=== PATIENT | male | born 1950 | race Caucasian/White ===

== ENCOUNTER 2021-01-14 12:53 | Emergency (ER) | payer OTHER ==
--- NOTE | 2021-01-14 14:17 | RAD REPORT ---
EXAM DESCRIPTION: RAD - Chest Pa And Lat (2 Views) - 01/14/2021 2:05 pm CLINICAL HISTORY: fall 1 week ago, rib pain Chest pain. COMPARISON: CHEST SINGLE VIEW dated 03/10/2015 FINDINGS: The lungs are clear. The heart is normal in size. No displaced fractures. Sternotomy wires noted. IMPRESSION: No acute or concerning finding suspected.
[2021-01-14] MEDS ORDERED: MORPHINE 2 MG/ML SYR ONE (15:17)
[2021-01-14] MEDS ORDERED: ONDANSETRON 4 MG/2 ML VIAL ONE (15:17)
[2021-01-14] MEDS ORDERED: NA CHLORIDE 0.9% 500 ML ONE (15:17)
[2021-01-14 15:18] LABS: Absolute Lymphocytes (CBC) 1.3 K/uL (0.7-4.9); Basophils % 0.8 % (0-1.3); Hematocrit 45.6 % (39.6-49.0); Lymphocytes % 15.6 % (15.3-44.8); MPV 7.2 fL (7.6-11.3)
[2021-01-14] MEDS ORDERED: NA CHLORIDE 0.9% 0 ML ONE (15:18)
[2021-01-14 15:36] LABS: Bilirubin Total 0.3 mg/dL (0.2-1.0); Potassium 4.2 mmol/L (3.5-5.1); Protein, Total 8.1 g/dL (6.4-8.2)
--- NOTE | 2021-01-14 15:46 | RAD REPORT ---
EXAM DESCRIPTION: CT - Chest Abdomen Pelvis W Cont - 01/14/2021 3:29 pm CLINICAL HISTORY: Chest and abdomen pain. Chest pain;Abdominal distention COMPARISON: No comparisons TECHNIQUE: Approximately 100 mL nonionic IV contrast was administered to the patient. All CT scans are performed using dose optimization technique as appropriate and may include automated exposure control or mA/KV adjustment according to patient size. FINDINGS: The lungs are clear.No pleural or pericardial effusion.No intrathoracic adenopathy.Sternot junior wires present. The liver, spleen, pancreas, adrenal glands and kidneys are within normal limits. No bowel obstruction, free air, free fluid or abscess. Appendectomy. Prominent colonic diverticulosis is noted without diverticulitis. No pathologic lymphadenopathy in the abdomen or pelvis. No fractures are evident. IMPRESSION: No acute abnormality is detected.
[2021-01-14 16:04] LABS: Urine Blood Negative (Negative); Urine Glucose Negative (Negative); Urine Protein Negative (Negative); Urine Specific Gravity 1.025 (1.005-1.030); Urine pH 5.5 (5.0-7.0)
--- NOTE | 2021-01-14 16:21 | ER ---
Nurse's Notes [facility] Name: Brant Cui Age: 70 yrs Sex: Male : 1950 Arrival Date: 01/14/2021 Time: 12:57 Bed 8 Private MD: Diagnosis: Fall on same level, unspecified;Contusion of right back wall of thorax;Contusion of right front wall of thorax;Contusion of abdominal wall Presentation: 01/14 13:13 Chief complaint: Patient states: "I fell about a week ago because a puppy tripped me aa5 and I fell onto the night stand". pt c/o right lower rib cage pain. Denies LOC. Coronavirus screen: At this time, the client does not indicate any symptoms associated with coronavirus-19. Ebola Screen: No symptoms or risks identified at this time. Initial Sepsis Screen: Does the patient meet any 2 criteria? No. Patient's initial sepsis screen is negative. Does the patient have a suspected source of infection? No. Patient's initial sepsis screen is negative. Risk Assessment: Do you want to hurt yourself or someone else? Patient reports no desire to harm self or others. Onset of symptoms was December 2020. 13:13 Method Of Arrival: Ambulatory aa5 13:13 Acuity: AUGUSTINE 3 aa5 Historical: - Allergies: 13:14 Kbbgagb-Elz-Hss Reductase Inhibitors; aa5 - Home Meds: 13:16 Plavix 75 mg Oral tab 1 tab once daily [Active]; Paxil 40 mg Oral tab 1 tab once daily aa5 [Active]; aspirin 81 mg Oral tab daily [Active]; Livalo oral once daily [Active]; Pepcid 20 mg Oral tab 2 times per day [Active]; Zetia 10 mg Oral tab 1 tab once daily [Active]; - PMHx: 13:14 Diabetes (Diet controlled); GERD; TIA; aa5 13:16 Myocardial infarction; aa5 - PSHx: 13:16 carpal tunner repair; Appendectomy; hernia; heart bypass; aa5 - Immunization history:: Adult Immunizations unknown. - Social history:: Smoking status: Patient denies any tobacco usage or history of. - Family history:: not pertinent. Assessment: 15:39 Musculoskeletal: Bruising to right flank. Tender to touch. jt3 Vital Signs: 13:13 BP 158 / 96; Pulse 69; Resp 16 S; Temp 97.0(TE); Pulse Ox 98% on R/A; Weight 83.91 kg aa5 (R); Height 6 ft. 0 in. (182.88 cm); 17:01 BP 180 / 88; Pulse 59; Resp 17; Pulse Ox 100% on R/A; jt3 13:13 Body Mass Index 25.09 (83.91 kg, 182.88 cm) aa5 ED Course: 12:57 Patient arrived in ED. ds1 13:13 Arm band placed on. aa5 13:14 Triage completed. aa5 14:03 Chest Pa And Lat (2 Views) XRAY In Process Unspecified. EDMS 14:30 Isaías Paul MD is Attending Physician. julia 14:48 Leodan Calvo, RN is Primary Nurse. jt3 15:13 CT Chest, Abdomen, Pelvis - W/Contrast In Process Unspecified. EDMS 15:13 Inserted saline lock: 20 gauge in left antecubital area, using aseptic technique. ch5 17:02 IV discontinued. jt3 Administered Medications: 15:12 Drug: NS 0.9% 500 ml Route: IV; Rate: bolus; Site: left antecubital; ch5 15:12 Not Given (Patient Refused): morphine 2 mg IVP once; (PAIN>8) RASS on ADMN: Combtv4, ch5 Very Agttd3, Agttd2, Rstlss1, AlertClm0, Drwsy-1, LtSdtn-2, ModSdtn-3, DpSdtn-4, UnArsble-5 x2 15:12 Not Given (Patient Refused): Zofran (Ondansetron) 4 mg IVP once; over 2 minutes ch5 15:13 Drug: NS 0.9% 1000 ml Route: IV; Rate: 125 ml/hr; Site: left antecubital; ch5 Outcome: 16:21 Discharge ordered by . julia 16:23 Discharged to home ambulatory. jt3 16:23 Condition: good 16:23 Discharge instructions given to patient. 17:12 Patient left the ED. jt3 Signatures: Dispatcher [employer] EDMS Isaías Paul MD MD cha Sanford, Demi ds1 Keira Stephens, ALKA RN aa5 Dickson Gispon RN RN ch5 Leodan Calvo RN RN jt3 Corrections: (The following items were deleted from the chart) 13:18 13:13 Acuity: AUGUSTINE 4 aa5 aa5
--- NOTE | 2021-01-14 16:22 | EDPHYS ---
Physician Documentation [facility] Name: Brant Cui Age: 70 yrs Sex: Male : 1950 Arrival Date: 01/14/2021 Time: 12:57 Bed 8 Private MD: ED Physician Isaías Paul HPI: 01/14 16:14 This 70 yrs old Male presents to ER via Ambulatory with complaints of Side julia Pain. 16:14 The patient presents with abdominal pain blunt injury to the upper abdomen. Onset: The julia symptoms/episode began/occurred 1 week(s) ago. The patient or guardian reports chest pain that is located primarily in the epigastric area, anterior chest wall, right lateral anterior chest and right lateral posterior chest. Onset: The symptoms/episode began/occurred 1 week(s) ago. The pain does not radiate. Associated signs and symptoms: Pertinent positives: cough. The chest pain is described as aching, sharp. Duration: The patient or guardian reports multiple episodes, that wax and wane. Modifying factors: The symptoms are alleviated by remaining still, the symptoms are aggravated by activity, breathing, cough, deep breath, exertion, jumping, movement, palpation of area, running, twisting torso, walking. Severity of pain: At its worst the pain was moderate in the emergency department the pain is unchanged. Historical: - Allergies: 13:14 Oljjnwi-Ycz-Cic Reductase Inhibitors; aa5 - Home Meds: 13:16 Plavix 75 mg Oral tab 1 tab once daily [Active]; Paxil 40 mg Oral tab 1 tab once daily aa5 [Active]; aspirin 81 mg Oral tab daily [Active]; Livalo oral once daily [Active]; Pepcid 20 mg Oral tab 2 times per day [Active]; Zetia 10 mg Oral tab 1 tab once daily [Active]; - PMHx: 13:14 Diabetes (Diet controlled); GERD; TIA; aa5 13:16 Myocardial infarction; aa5 - PSHx: 13:16 carpal tunner repair; Appendectomy; hernia; heart bypass; aa5 - Immunization history:: Adult Immunizations unknown. - Social history:: Smoking status: Patient denies any tobacco usage or history of. - Family history:: not pertinent. ROS: 16:14 Constitutional: Negative for fever, chills, and weight loss, Eyes: Negative for injury, julia pain, redness, and discharge, ENT: Negative for injury, pain, and discharge, Neck: Negative for injury, pain, and swelling, Cardiovascular: Negative for chest pain, palpitations, and edema, Respiratory: Negative for shortness of breath, cough, wheezing, and pleuritic chest pain, Abdomen/GI: Negative for abdominal pain, nausea, vomiting, diarrhea, and constipation, : Negative for injury, bleeding, discharge, and swelling, MS/Extremity: Negative for injury and deformity, Skin: Negative for injury, rash, and discoloration, Neuro: Negative for headache, weakness, numbness, tingling, and seizure, Psych: Negative for depression, anxiety, suicide ideation, homicidal ideation, and hallucinations, Allergy/Immunology: Negative for hives, rash, and allergies, Endocrine: Negative for neck swelling, polydipsia, polyuria, polyphagia, and marked weight changes, Hematologic/Lymphatic: Negative for swollen nodes, abnormal bleeding, and unusual bruising. 16:14 Back: Positive for decreased range of motion, pain at rest, pain with movement, of the right subscapular area, right mid back and right low back. Exam: 16:14 Constitutional: This is a well developed, well nourished patient who is awake, alert, julia and in no acute distress. Head/Face: Normocephalic, atraumatic. Eyes: Pupils equal round and reactive to light, extra-ocular motions intact. Lids and lashes normal. Conjunctiva and sclera are non-icteric and not injected. Cornea within normal limits. Periorbital areas with no swelling, redness, or edema. ENT: Nares patent. No nasal discharge, no septal abnormalities noted. Tympanic membranes are normal and external auditory canals are clear. Oropharynx with no redness, swelling, or masses, exudates, or evidence of obstruction, uvula midline. Mucous membranes moist. Neck: Trachea midline, no thyromegaly or masses palpated, and no cervical lymphadenopathy. Supple, full range of motion without nuchal rigidity, or vertebral point tenderness. No Meningismus. Cardiovascular: Regular rate and rhythm with a normal S1 and S2. No gallops, murmurs, or rubs. Normal PMI, no JVD. No pulse deficits. Respiratory: Lungs have equal breath sounds bilaterally, clear to auscultation and percussion. No rales, rhonchi or wheezes noted. No increased work of breathing, no retractions or nasal flaring. Abdomen/GI: Soft, non-tender, with normal bowel sounds. No distension or tympany. No guarding or rebound. No evidence of tenderness throughout. Back: No spinal tenderness. No costovertebral tenderness. Full range of motion. Male : Normal genitalia with no discharge or lesions. Skin: Warm, dry with normal turgor. Normal color with no rashes, no lesions, and no evidence of cellulitis. MS/ Extremity: Pulses equal, no cyanosis. Neurovascular intact. Full, normal range of motion. Neuro: Awake and alert, GCS 15, oriented to person, place, time, and situation. Cranial nerves II-XII grossly intact. Motor strength 5/5 in all extremities. Sensory grossly intact. Cerebellar exam normal. Normal gait. Psych: Awake, alert, with orientation to person, place and time. Behavior, mood, and affect are within normal limits. 16:14 Chest/axilla: Inspection: ecchymosis, that is mild, of the right lateral anterior chest and right lateral posterior chest Vital Signs: 13:13 BP 158 / 96; Pulse 69; Resp 16 S; Temp 97.0(TE); Pulse Ox 98% on R/A; Weight 83.91 kg aa5 (R); Height 6 ft. 0 in. (182.88 cm); 17:01 BP 180 / 88; Pulse 59; Resp 17; Pulse Ox 100% on R/A; jt3 13:13 Body Mass Index 25.09 (83.91 kg, 182.88 cm) aa5 MDM: 14:30 Patient medically screened. julia 16:14 Differential diagnosis: non-specific abd pain, Blunt Chest Trauma Chest Wall Contusion julia Chest Wall Injury Pneumomediastinum Pneumothorax Pulmonary Contusion Rib Fracture. Data reviewed: vital signs, nurses notes, lab test result(s), radiologic studies, CT scan, plain films. Data interpreted: bus monitor: rate is 69 beats/min, rhythm is regular, Pulse oximetry: on room air is 98 %. Test interpretation: by ED physician or midlevel provider: plain radiologic studies. Counseling: I had a detailed discussion with the patient and/or guardian regarding: the historical points, exam findings, and any diagnostic results supporting the discharge/admit diagnosis, lab results, radiology results, the need for outpatient follow up, for definitive care, a family practitioner. 01/14 14:34 Order name: CBC with Diff [facility] 01/14 14:34 Order name: Comprehensive Metabolic Panel; Complete Time: 16:10 [facility] 01/14 14:34 Order name: Lipase; Complete Time: 16:10 [facility] 01/14 14:34 Order name: Urine Culture [facility] 01/14 14:34 Order name: CBC with Automated Diff; Complete Time: 16:10 [facility] 01/14 16:04 Order name: Urine Dipstick-Ancillary; Complete Time: 16:10 [facility] 01/14 13:15 Order name: Chest Pa And Lat (2 Views) XRAY; Complete Time: 14:34 aa5 01/14 14:34 Order name: CT Chest, Abdomen, Pelvis - W/Contrast; Complete Time: 16:10 [facility] 01/14 16:14 Order name: INCENTIVE SPIROMETRY [facility] 01/14 17:01 Order name: CREATININE WHOLE BLOOD [facility]TN 01/14 14:34 Order name: Urine Dipstick-Ancillary (obtain specimen); Complete Time: 16:08 [facility] Administered Medications: 15:12 Drug: NS 0.9% 500 ml Route: IV; Rate: bolus; Site: left antecubital; ch5 15:12 Not Given (Patient Refused): morphine 2 mg IVP once; (PAIN>8) RASS on ADMN: Combtv4, ch5 Very Agttd3, Agttd2, Rstlss1, AlertClm0, Drwsy-1, LtSdtn-2, ModSdtn-3, DpSdtn-4, UnArsble-5 x2 15:12 Not Given (Patient Refused): Zofran (Ondansetron) 4 mg IVP once; over 2 minutes ch5 15:13 Drug: NS 0.9% 1000 ml Route: IV; Rate: 125 ml/hr; Site: left antecubital; ch5 Disposition Summary: 01/14/21 16:21 Discharge Ordered Location: Home julia Problem: new julia Symptoms: have improved julia Condition: Stable julia Diagnosis - Fall on same level, unspecified julia - Contusion of right back wall of thorax julia - Contusion of right front wall of thorax julia - Contusion of abdominal wall julia Followup: julia - With: Private Physician - When: 2 - 3 days - Reason: Recheck today's complaints, Continuance of care, Re-evaluation by your physician Discharge Instructions: - Discharge Summary Sheet julia - Contusion julia - Fall Prevention in the Home, Adult julia - How to Use an Incentive Spirometer julia - Contusion, [id number] julia - Fall Prevention in the Home, Adult, [id number] julia Forms: - Medication Reconciliation Form julia - Thank You Letter julia - Antibiotic Education julia - Prescription Opioid Use julia Prescriptions: - Tylenol-Codeine #3 300 mg-30 mg Oral - take 1 tablet by ORAL route every 4-6 hours; 20 tablet; Refills: 0, Product julia Selection Permitted Signatures: Dispatcher [employer] EDIsaías Fay MD MD cha Calderon, Audri, RN RN aa5 Dickson Gipson RN RN ch5
[2021-01-14 17:28] VITALS: TEMP 97
[2021-01-14 17:30] VITALS: BP 180/88; O2SAT 100
== END 2021-01-14 17:12 | disposition home or self-care (01) ==
LOC: ER 12:53
DX: S30.1XXA Contusion of abdominal wall, initial encounter (principal); S20.221A Contusion of right back wall of thorax, initial encounter; S20.211A Contusion of right front wall of thorax, initial encounter; W18.30XA Fall on same level, unspecified, initial encounter; E11.9 Type 2 diabetes mellitus without complications; Z95.1 Presence of aortocoronary bypass graft; Z79.01 Long term (current) use of anticoagulants; Z79.82 Long term (current) use of aspirin; Z88.8 Allergy status to other drugs, medicaments and biological substances
CPT/HCPCS: 85025; 87086; 36415; 82565; 81003; 83690; 80053; 71260; 74177; 71046; 99283; Q9967; J7040; 87088; J2270; J2405; J7030